=== PATIENT | female | born 1990 | race Caucasian/White ===

== ENCOUNTER 2016-08-04 12:14 | Emergency (ER) | payer MEDICAID ==
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
[2016-08-04] MEDS ORDERED: LORazepam 1 MG TAB PO ONE (12:44)
[2016-08-04 12:58] VITALS: BP 115/62; PULSE 78; RESP 18; TEMP 97; O2SAT 97
== END 2016-08-04 12:56 | disposition home or self-care (01) ==
LOC: CED 12:14
DX: F41.9 Anxiety disorder, unspecified (principal); F17.200 Nicotine dependence, unspecified, uncomplicated
CPT/HCPCS: 96372-PO; 99203-PO; G0463-PO